=== PATIENT | female | born 1965 | race Caucasian/White ===

== ENCOUNTER 2018-03-03 05:51 | Day surgery (SDC) | payer OTHER ==
--- NOTE | 2018-03-01 19:14 | GHP ---
DATE OF ADMISSION: 03/03/2018 DATE OF SURGERY: 03/03/2018. PREOPERATIVE DIAGNOSES: 1. Menometrorrhagia, submucosal fibroids, and endometrial polyps. 2. Desires sterilization. SURGERY TO BE PERFORMED: 1. Laparoscopic bilateral salpingectomy. 2. Hysteroscopy, dilation curettage, polypectomy, and myomectomy with morcellator. SURGEON: Dr. Babita oJhnson. ANESTHESIA: General anesthesia. INDICATIONS FOR PROCEDURE: The patient is a 52-year-old 0 with a longstanding history of men ometrorrhagia which has been increasing over the last 6 months. Recently, she has had 2 weeks of yen y heavy bleeding, soaking a super tampon every 30 minutes for several days of a week of her cycle. S he feels fatigue and dizzy because of this bleeding and it is making it difficult for her to work. S he denies hot flashes or night sweats or any menopausal symptoms. She underwent a workup for her men orrhagia, workup including labs. Her thyroid was normal at 1.90. FSH was elevated at 62.0. Estradi ol was 25. She is a slight anemic with a hemoglobin of 12.1 and hematocrit of 38. She also had a pe lvic ultrasound. Pelvic ultrasound revealed multiple uterine fibroids, specifically 2 submucosal fib roids ranging 2.8 x 1.9 x 2.6 cm and 1.4 x 1.0 x 1.6 cm, also a polyp with a seeder vessel in the end ometrium which is approximately 15 mm. Her ovaries had some echogenic foci and follicles but no othe r abnormalities. She also has multiple subserosal fibroids. We reviewed treatment options for this patient. She is recently in a new relationship and has restarted oral contraceptive pills for contra ception. However, she has also started smoking again, and I strongly encouraged her to stop smoking immediately, as well as stop the oral contraceptive pills because of risk of blood clotting and discu ssed with her treatment options for her bleeding, as well as to give her adequate contraception. I r ecommended a total vaginal hysterectomy because of multiple fibroids, severe bleeding, and also would give her good contraception. The patient is reluctant to have a hysterectomy, but wishes to have mo re minimally invasive approach, so we discussed a hysteroscopy, D and C, with myomectomy and polypect sharon. She is favorable to this. I also offered an endometrial ablation to try to attempt to discoura ge growth of further polyps or submucosal fibroids by ablating the endometrium and patient considered this, but now does not wish to go through with this part of the procedure. We discussed contracepti ve options and I discussed, at the time of surgery, I could do a laparoscopic salpingectomy, which wo uld give her permanent contraception without risk of blood of blood clots or any increased risk becau se of her smoking, and also small benefit of ovarian cancer prevention. She considered this and is i n agreement with this plan. PAST MEDICAL HISTORY: Patient has an extensive psychological history. She has depression as well as anxiety and possible bipolar disorder. She is on multiple psychiatric medications and is followed b y a psychiatrist. She does not have any other medical issues. PAST SURGICAL HISTORY: She has a history of a laparoscopic myomectomy in 2012, with removal of sever al large subserosal fibroids. Patient has wanted to retain her fertility throughout her 40s because she wished to have children until recently. This no other surgical history. OBSTETRICAL HISTORY: The patient has never been . PAST GYNECOLOGICAL HISTORY: She had menarche at age 15. She has cycles every 21-25 days lasting 7-1 0 days. They have been heavy throughout her life, slightly improved immediately after myomectomy but then increased again. She has tried multiple oral contraceptive pills, medications, and IUDs for in the past. She has no history of abnormal Pap smears. Most recent Pap smear was in January of this y ear, which was negative for negative for HPV, gonorrhea, and chlamydia. No history of STDs. FAMILY HISTORY: Her father had prostate cancer, arthritis, and a heart attack. Grandmother osteopor osis. Mother has glaucoma. That is all. SOCIAL HISTORY: Patient is single but does have a new sexual partner. She has recently been screene d for STDs and is negative. 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 She denies tobacco use initially, but then admitted to me that she is smoking 5-6 cigarettes a day. Alcohol 3 times a week. Denies d rug use. Two cups of coffee a day. Does not have any regular exercise. REVIEW OF SYSTEMS: Negative except for pertinent positives as above in HPI. OBJECTIVE: VITAL SIGNS: Blood pressure is 102/66, weight is 131 pounds. GENERAL: She is a well-de veloped, white female in no acute distress. LUNGS: Clear to auscultation bilaterally. HEART: Regu lar rate and rhythm. No murmur. ABDOMEN: Soft, nontender, nondistended. She does have a bulky southern ute ken palpable in her lower pelvis. PELVIC: Normal external genitalia. Normal nulliparous cervix. U terus is bulky. Fibroids are palpable. No discrete masses and no adnexal masses. ASSESSMENT AND PLAN: A 52-year-old 0 with significant menometrorrhagia causing anemia and mu ltiple uterine fibroids including 2 large submucosal fibroids and 1 large endometrial polyp. She was consented today for hysteroscopy, dilation and curettage, myomectomy, and polypectomy. She understo od the risks and benefits of this procedure, the risks including bleeding, infection, damage to the u terus including possible risk of perforation, damage to other organs if perforation was to occur, nee d for additional procedures, and electrolyte abnormalities/imbalances. She understood these risks an d benefits and agreed to proceed. She also desires sterilization. She will be consented for a lapar oscopic bilateral salpingectomy and has been reviewed the risks and benefits of this including bleedi ng, infection, damage to organs, ovaries, bowel, bladder, nerves, blood vessels, ureters, need for op en procedure, and also need for additional procedures, and the fact that the sterilization will be pe rmanent. /[id number]/MODL
[2018-03-03] MEDS ORDERED: ceFAZolin 2 GM/DEXTROSE 100 ML IV ONE (06:03)
[2018-03-03] MEDS ORDERED: LR 1,000 ML IV ONE (06:04)
[2018-03-03] MEDS ORDERED: BUPIVACAINE/EPI 0.5% 30 ML SDV ONE (06:34)
[2018-03-03] MEDS ORDERED: SILVER NITRATE APPLICATOR 1 APPL TP ONE ×2 (06:35→09:09)
--- NOTE | 2018-03-03 06:53 | PDANEPAE ---
ANE History of Present Illness here for hysteroscopy and bilat salpingectomy ANE Past Medical History - Cardiovascular History Hx Hypertension: No Hx Arrhythmias: No Hx Chest Pain: No Hx Coronary Artery / Peripheral Vascular Disease: No Hx CHF / Valvular Disease: No Hx Palpitations: No - Pulmonary History Hx COPD: No Hx Asthma/Reactive Airway Disease: No Hx Recent Upper Respiratory Infection: No Hx Oxygen in Use at Home: No Hx Sleep Apnea: No Sleep Apnea Screening Result - Last Documented: Negative - Neurologic History Hx Cerebrovascular Accident: No Hx Seizures: No Hx Dementia: No - Endocrine History Hx Diabetes: No - Renal History Hx Renal Disorders: No - Liver History Hx Hepatic Disorders: No - Neurological & Psychiatric Hx Hx Neurological and Psychiatric Disorders: Yes Neurological / Psychiatric History Comment: anxiety, depression, bipolar - Cancer History Hx Cancer: No - Congenital Disorder History Hx Congenital Disorders: No - GI History Hx Gastrointestinal Disorders: No - Other Health History Other Health History: vaginal & oral HSV - Chronic Pain History Chronic Pain: No - Surgical History Prior Surgeries: fibroid removed from right breast. laporscopic uterine fibroid removal, 2013 ANE Review of Systems Review of systems is: negative Review of Systems: - Exercise capacity Exercise capacity: >=4 METS METS (RN): 4 METS ANE Patient History - Allergies Allergies/Adverse Reactions: erythromycin base [Erythromycin Base] Allergy (Unknown, Verified 02/10/18 10:26) stomach pains - Home Medications Home medications: home medication list seen and reviewed Home Medications: Wellbutrin 04/22/12 [Last Taken 03/03/18 05:00] Abilify 02/10/18 [Last Taken 03/02/18] Adult One Daily Multivit Tab 02/10/18 [Last Taken 03/02/18] Escitalopram Oxalate 02/10/18 [Last Taken 03/03/18 05:00] Lamictal 02/10/18 [Last Taken 03/02/18] Valtrex 02/10/18 [Last Taken 03/03/18 05:00] Xanax 02/10/18 [Last Taken 03/02/18] - NPO status NPO Status: no food or drink >8 hours NPO Since - Liquids (Date): 03/02/18 NPO Since - Liquids (Time): 10:30 NPO Since - Solids (Date): 03/02/18 NPO Since - Solids (Time): 21:00 - Smoking Hx Smoking Status: Heavy smoker - Family Anes Hx Family Hx Anesthesia Complications: none ANE Labs/Vital Signs - Vital Signs Vital Signs: reviewed preoperatively; see RN documention for details Blood Pressure: 105/66 Heart Rate: 87 Respiratory Rate: 18 O2 Sat (%): 97 Height: 160.02 cm Weight: 60.781 kg ANE Physical Exam - Airway Neck exam: FROM Mallampati Score: Class 1 - Pulmonary Pulmonary: no respiratory distress - Cardiovascular Cardiovascular: regular rate and rhythym - ASA Status ASA Status: II ANE Anesthesia Plan Anesthesia Plan: general endotracheal anesthesia
[2018-03-03] MEDS ORDERED: MIDAZOLAM 2 MG/2 ML VIAL IVP ONE (07:01)
[2018-03-03] MEDS ORDERED: ONDANSETRON 4 MG/2 ML VIAL IVP PRN (07:02)
[2018-03-03] MEDS ORDERED: HYDROCODONE/APAP 5/325 TAB PO PRN (07:02)
[2018-03-03] MEDS ORDERED: fentaNYL 100 MCG/2 ML INJ IVP PRN (07:02)
[2018-03-03] MEDS ORDERED: NALOXONE HCL 0.4 MG/ML INJ IVP PRN (07:02)
[2018-03-03] MEDS ORDERED: DEXAMETHASONE 4 MG/ML VIAL IVP PRN (07:02)
[2018-03-03] MEDS ORDERED: HYDROmorphONE/DILAUDID 2 MG/ML INJ IVP PRN (07:02)
[2018-03-03] MEDS ORDERED: ALBUTEROL 3 ML DEYVIAL IH PRN (07:02)
[2018-03-03] MEDS ORDERED: oxyCODONE IR 5 MG TAB PO PRN ×2 (07:02→09:16)
[2018-03-03] MEDS ORDERED: ACETAMINOPHEN 500 MG TAB PO PRN (07:02)
[2018-03-03] MEDS ORDERED: LR 500 ML IV PRN (07:02)
[2018-03-03] MEDS ORDERED: DIAZEPAM 5 MG/ML 1 ML SYR IVP PRN (07:02)
[2018-03-03] MEDS ORDERED: PROPOFOL/EMULSION 500 MG/50 ML BOTTLE IV ONE (07:08)
[2018-03-03] MEDS ORDERED: fentaNYL 100 MCG/2 ML INJ ONE (07:10)
--- NOTE | 2018-03-03 07:42 | PDHPUP ---
History & Physical Update H&P update statement: This history and physical update is based on an assessment of the patient which was completed after admission or registration (within 24 hours), but prior to the surgery/procedure. H&P update: H&P reviewed & patient examined, no change in patient's condition since H&P completed
[2018-03-03] MEDS ORDERED: PHENYLEPHRINE HCL 100 MCG/ML SYR ONE (07:44)
[2018-03-03] MEDS ORDERED: ONDANSETRON 4 MG/2 ML VIAL ONE (07:48)
[2018-03-03] MEDS ORDERED: DEXAMETHASONE 4 MG/ML VIAL ONE (07:48)
[2018-03-03] MEDS ORDERED: SUGAMMADEX SODIUM 200 MG/2 ML VIAL IVP ONE (08:57)
[2018-03-03] MEDS ORDERED: BACITRACIN ZINC 14.2 GM OINTTUBE TP ONE (09:09)
[2018-03-03] MEDS ORDERED: KETOROLAC 30 MG/1 ML SDV ONE (09:12)
[2018-03-03] MEDS ORDERED: IBUPROFEN 200 MG TAB PO PRN (09:17)
--- NOTE | 2018-03-03 09:20 | POSTOPPROG ---
Post Op Note Date of Operation: 03/03/18 Surgeon: Babita Johnson Fuel Cell Engineer: Skyla RESENDIZ Anesthesiologist: Dr. Thanh Bazzi Anesthesia: GET(General Endotracheal) Pre-op Diagnosis: desires sterilization, menomenorrhagia, submucosal fibroids, skin nevi Post-op Diagnosis: same Procedure: Laparoscopic Bilateral salpingectomy, Hysteroscopy, polypectomy and myomect Findings: normal pelvic anatomy, endometrium with polyps and submucosal fibroids Inf/Abcess present in the surg proc area at time of surgery?: No Depth: Organ Space EBL: Minimal Total fluids administered: 1000 Complications: none Specimen(s): bilateral fallopian tubes, endometrial polyps and submucosal fibroids, skin nevi
--- NOTE | 2018-03-03 10:27 | GOP ---
DATE OF OPERATION: 03/03/2018 SURGEON: Babita Johnson MD CRECHE ATTENDANT: Skyla Haley, certified nurse 1st admissions assistant. ANESTHESIA: General anesthesia. ANESTHESIOLOGIST: Dr. Thanh Bazzi. PREOPERATIVE DIAGNOSIS: 1. Desires permanent sterilization. 2. Menometrorrhagia with submucosal fibroids and endometrial polyps. 3. Undesired skin nevi. POSTOPERATIVE DIAGNOSIS: 1. Desires permanent sterilization. 2. Menometrorrhagia with submucosal fibroids and endometrial polyps. 3. Undesired skin nevi. PROCEDURE PERFORMED: 1. Laparoscopic bilateral salpingectomy. 2. Hysteroscopy, dilation, curettage, polypectomy and myomectomy with morcellator. 3. Removal of skin nevi. FINDINGS: SPECIMENS: Pathologic specimen will be bilateral fallopian tubes, endometrial tissue including polyp s as well as submucosal fibroids and nevi from right buttocks and right neck. ESTIMATED BLOOD LOSS: Less than 20 cc. DESCRIPTION OF PROCEDURE: Patient was taken to the operating room where she was placed under general anesthesia without difficulty. She was prepped and draped in the dorsal lithotomy position and her bladder was drained with a red rubber catheter. An open-sided speculum was placed in the vagina, and a single-tooth tenaculum was used to grasp the anterior lip of the cervix. An acorn uterine manipul ator was placed through the cervix and attached to the tenaculum. Attention was then turned to the a bdominal portion of the procedure. After injection of Marcaine, a 5 mm skin incision was made in the infraumbilical skin fold and a 5 mm atraumatic trocar was placed through that site under direct visu alization. The peritoneum was entered and pneumoperitoneum was created with carbon dioxide gas and v isualization of the cavity was made. The patient was placed in steep Trendelenburg and after injecti on of Marcaine, a 5 mm skin incision was placed in the right lower quadrant as well as the left lower quadrant, all under direct visualization without difficulty. The uterus was anteflexed. The left f allopian tube was grasped at the fimbriated end and the LigaSure were used to cauterize and cut and r emove that tube along the mesosalpinx from the fimbria to the cornual end of the tube. That tube was grasped and removed through the 5 mm port. The right fallopian tube was then grasped and there were noted to be adhesions from the fimbriated end of the tube to the pelvic sidewall as well as to the s mall intestine. These were grasped and cauterized directly close to the tube, care to avoid any bria l structures and then the LigaSure was used to remove the tube from the cornual end through the fimbr iated end as well as all of the adhesions without difficulty. That tube was removed through the 5 mm port also without difficulty. A small area on the pedicle of the mesosalpinx which was cauterized w ith the LigaSure and good hemostasis was assured. Inspection of the pelvis revealed normal ovaries, uterus that had obvious small uterine fibroids, but grossly normal. Other than that, the appendix wa s not able to be visualized. The liver and the gallbladder were normal. The pneumoperitoneum was al lowed to escape. The trocars were removed under direct visualization and the incision sites were shira sed with 4-0 Monocryl in a subcuticular fashion. Steri-Strips were applied. Patient tolerated this well. Attention was then turned to the hysteroscopy portion. Patient was placed in steep Trendelenburg. T he acorn manipulator was removed. The single-tooth tenaculum was replaced and the uterus sounded to 9 cm. The cervix was then progressively dilated with Chadwick dilators to a #9.5. The operative hyster oscope was placed through the silk crepe machine operator under direct visualization and inspection of the uterine cavit y was performed. There was noted to be multiple uterine polyps, a lot of redundant tissue, and submu cosal fibroid at the fundus and anterior wall. The morcellator was advanced through the operative ch stefan and window lock was performed. Morcellation was performed under direct visualization of the po lyp as well as the submucosal fibroid until the entire endometrial cavity was visualized. Both tubal ostia were visualized and there were no further pathology visualized in the cavity. The hysteroscop e was removed. The tenaculum was removed. There were small areas of bleeding which were cauterized with silver nitrate. The patient tolerated the procedure well and had good hemostasis. The patient was then cleaned up with Betadine and placed on her left side. The patient had a nevi on the upper l eft side of her buttocks and on her right neck that she wished to have removed. While we carefully h eld the patient we prepped those areas with chlorhexidine. The nevi were grasped with forceps and re moved cleanly with a knife. The base was cauterized with Bovie and silver nitrate. Good hemostasis was obtained and I applied antibiotic ointment and Band-Aids. The patient tolerated the procedure we ll. Sponge, lap, needle, and instrument counts were correct x2. Patient went to the recovery room i n good condition. INDICATION FOR PROCEDURE: Maricel is a 52-year-old 0 with a longstanding history of menometr orrhagia that has been increasing over the last 6 months. Recently, she had 2 weeks of very heavy bl eeding every month, soaking a super tampon every 30 minutes for several days a week of her cycle. Richard oviedo feels fatigued and dizzy because of this bleeding and it is making it difficult for her to work. S he denies hot flashes, night sweats, or any signs of impending menopause. She underwent a workup for her menorrhagia and was found to have multiple uterine fibroids, specifically 2 submucosal fibroids ranging from 2.8 x 1.9 x 2.6 cm and 1.4 x 1.0 x 1.6 cm also with an endometrial polyp greater than 1 cm with feeder vessels in the endometrium. Ovaries were normal. No other signs of pathology except for also multiple subserosal and intramural fibroids. The patient has recently began a new relations hip and has started oral contraceptive pills that she had been prescribed years prior. She has also admitted to starting smoking recently smoking 5-10 cigarettes a day. We had a strong discussion abou t the risks of estrogen-containing oral contraceptive pills in a smoker, especially a patient who is age 52 with increased risk of catastrophic blood clots and I strongly discouraged her to taking the p ill and smoking. We discussed contraceptive measures. The patient declined a total vaginal hysterec anurag, which would remove all her fibroids and provide contraception. However, she agreed to a laparo scopic bilateral salpingectomy and a hysteroscopy, D and C, myomectomy and polypectomy. I also offer ed her a Shanon endometrial ablation in an attempt to treat all remaining endometrial cells to preve nt further polyp formation as well attempt to give her amenorrhea. The patient considered this, but ultimately declined. The patient was consented for the procedure. She understood the risks and bene fits, the risks including bleeding, infection, damage to organs, uterus, tubes, ovaries, bowel, bladd er, nerves, blood vessels, ureters, risk of electrolyte imbalance, risk of needing additional procedu res and risk of uterine perforation. She understood these risks and benefits and agreed to proceed. URINE OUTPUT: Not measured. /[id number]/MODL
[2018-03-03 12:48] VITALS: BP 111/70
== END 2018-03-03 12:39 | disposition home or self-care (01) ==
LOC: FSGY 05:51
PROVIDERS: ATTEND Obstetrics & Gynecology
DX: D25.0 Submucous leiomyoma of uterus (principal); N92.1 Excessive and frequent menstruation with irregular cycle; N84.0 Polyp of corpus uteri; Z30.2 Encounter for sterilization; D22.4 Melanocytic nevi of scalp and neck; D22.5 Melanocytic nevi of trunk; F17.210 Nicotine dependence, cigarettes, uncomplicated; F41.8 Other specified anxiety disorders
CPT/HCPCS: 58561; 58661; C1782; J0690; J1100; J1885; J2250; J2370; J2405; J2704; J3010